=== PATIENT | female | born 1990 | race Caucasian/White ===

== ENCOUNTER 2018-01-25 14:04 | Emergency (ER) | payer OTHER ==
[2018-01-25] MEDS ORDERED: Benzocaine 20% Topical Spray UD MUCMEM ONE (14:22)
[2018-01-25] MEDS ORDERED: Lidocaine 2% Viscous Solution 15 ML Cup PO ONE (14:22)
--- NOTE | 2018-01-25 14:29 | EDM.PDOC ---
ED HPI GENERAL MEDICAL PROBLEM - General Chief Complaint: ENT Problem Stated Complaint: TOOTH PAIN Time Seen by Provider: 01/25/18 14:13 Source of Information: Reports: Patient History Limitations: Reports: No Limitations - History of Present Illness INITIAL COMMENTS - FREE TEXT/NARRATIVE: History of present illness: []Patient broke off a piece of her tooth while eating a cheeseburger today. Review of systems: As per history of present illness and below otherwise all systems reviewed and negative. Past medical history: As per history of present illness and as reviewed below otherwise noncontributory. Surgical history: As per history of present illness and as reviewed below otherwise noncontributory. Social history: No reported history of drug or alcohol abuse. Family history: As per history of present illness and as reviewed below otherwise noncontributory. Physical exam: General: Well developed, well nourished in NAD HEENT: Atraumatic, normocephalic, pupils reactive, negative for conjunctival pallor or scleral icterus, mucous membranes moist, throat clear, neck supple, nontender, trachea midline. Tooth #1 has a chip in it. No gum swelling or edema Lungs: Clear to auscultation, breath sounds equal bilaterally, chest nontender. Heart: S1S2, regular, negative for clicks, rubs, or JVD. Abdomen: Soft, nondistended, nontender. Negative for masses or hepatosplenomegaly. Negative for costovertebral tenderness. Pelvis: Stable nontender. Genitourinary: Deferred. Rectal: Deferred. Extremities: Atraumatic, negative for cords or calf pain. Neurovascular unremarkable. Neuro: Awake, alert, oriented. Cranial nerves II through XII unremarkable. Cerebellum unremarkable. Motor and sensory unremarkable throughout. Exam nonfocal. Diagnostics: [] Therapeutics: []Dental balls or pain Impression: []Chipped tooth Plan: []Follow-up with a dentist as possible Definitive disposition and diagnosis as appropriate pending reevaluation and review of above. Left Upper Tooth/Teeth Pain Score (Numeric/FACES): 10 - Related Data Allergies Allergy/AdvReac Type Severity Reaction Status Date / Time amoxicillin Allergy Hives Verified 01/25/18 14:25 Home Meds: Home Meds . [No Known Home Meds] 01/25/18 [History] ED ROS ENT - Review of Systems Review Of Systems: See Below (See history of present illness) ED EXAM, ENT - Physical Exam Exam: See Below (See history of present illness) Course - Vital Signs Last Recorded V/S: Last Vital Signs Temp 98.2 F 01/25/18 14:23 Pulse 79 01/25/18 14:23 Resp 18 01/25/18 14:23 BP 133/81 01/25/18 14:23 Pulse Ox 95 01/25/18 14:23 - Orders/Labs/Meds Orders: Active Orders 24 hr Category Date Time Status Abdomen wo Cont [MR] Stat Exams 01/25/18 14:30 Stop Req Meds: Medications Discontinued Medications Generic Name Dose Route Start Last Admin Trade Name Freq PRN Reason Stop Dose Admin Benzocaine 2 each 01/25/18 14:22 Hurricaine One 20% MUCMEM 01/25/18 14:23 ONETIME ONE Lidocaine HCl 15 ml 01/25/18 14:22 Xylocaine 2% Viscous PO 01/25/18 14:23 ONETIME ONE Departure - Departure Time of Disposition: 14:39 Disposition: Home, Self-Care 01 Condition: Good Clinical Impression: Chipped tooth Qualifiers: Encounter type: initial encounter - Discharge Information Referrals: PCP,None [Primary Care Provider] - Forms: ED Department Discharge Additional Instructions: The following information is given to patients seen in the emergency department who are being discharged to home. This information is to outline your options for follow-up care. We provide all patients seen in our emergency department with a follow-up referral. The need for follow-up, as well as the timing and circumstances, are variable depending upon the specifics of your emergency department visit. If you don't have a primary care physician on staff, we will provide you with a referral. We always advise you to contact your personal physician following an emergency department visit to inform them of the circumstance of the visit and for follow-up with them and/or the need for any referrals to a consulting specialist. The emergency department will also refer you to a specialist when appropriate. This referral assures that you have the opportunity for follow-up care with a specialist. All of these measure are taken in an effort to provide you with optimal care, which includes your follow-up. Under all circumstances we always encourage you to contact your private physician who remains a resource for coordinating your care. When calling for follow-up care, please make the office aware that this follow-up is from your recent emergency room visit. If for any reason you are refused follow-up, please contact the [facility] Emergency Department at and asked to speak to the emergency department charge nurse. Dental Balls, Motrin or Tylenol for pain, return if any fevers or facial swelling occur. Call a dentist in follow-up as soon as possible - My Orders Last 24 Hours: My Active Orders 01/25/18 14:30 Abdomen wo Cont [MR] Stat - Assessment/Plan Last 24 Hours: My Active Orders 01/25/18 14:30 Abdomen wo Cont [MR] Stat
== END 2018-01-25 14:49 | disposition home or self-care (01) ==
LOC: MW.ED 14:04
DX: S02.5XXA Fracture of tooth (traumatic), initial encounter for closed fracture (principal); Z88.1 Allergy status to other antibiotic agents; X58.XXXA Exposure to other specified factors, initial encounter
CPT/HCPCS: 99282; A9270